=== PATIENT | female | born 2005 | race Asian ===

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

== ENCOUNTER 2025-06-01 15:11 | Outpatient (AMB) | payer BC, SELFPAY ==
--- NOTE | 2025-06-01 15:12 | A.OFFVIS_ITS ---
Intake Visit Reasons: F/u Allergies No Known Allergies Allergy (Verified 06/01/25 15:16) Medication List - Last Reconciled 06/01/25 by Neida Chacon CNP vgkesqrxmt-gyfacxzhquyzg-nfiq 50-325-40 mg 1 tab PO DAILY PRN 30 days escitalopram oxalate 10 mg PO DAILY fremanezumab-vfrm (Ajovy) mg subcut ondansetron mg PO HPI Comments Details: 19-year-old woman with anxiety, depression, poor sleep hygiene, insomnia and migraine. 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 Migraines were much better with Ajovy. She had two doses of medication. Migraines were down to once a month from 3x/week. Butalbital as needed helped. Mood was up and down. She had some trouble falling asleep. [facility] Medical History (Updated 06/01/25 @ 15:15 by Neida Chacon CNP) Insomnia Depression Migraine without aura Physical Exam Const Other: General Appearance:? normal, in no acute distress. Skin:? no rashes, no significant birthmarks. Heart:? S1, S2 normal, no murmurs. Lungs:? clear anteriorly and posteriorly. Extremities:? no edema. Psych:? alert, oriented, cognitive function intact, cooperative with exam. Neuro Other: Mental Status:?Normal attention, orientation, memory and affect.? Cranial Nerves:?Pupils are equal, round and reactive to light. External occular muscles are intact. Visual espinoza are full. Face is symmetrical. Facial sensations are normal. Tongue is midline. Palate elevates symmetrically. Shoulder shrugging is normal. Hearing to bedside conversation is normal. Sensory Exam:?....? Coordination:?No ataxia,?no titubation.? Gait Exam: Within normal limits. Extrapyramidal System:?No tremor, rigidity with normal facial expressions.? Pronator Drift:?Not present.? Involuntary Movements:?No tremors seen.? Speech:?Normal.? Assessment & Plan Assessment & Plan (1) Migraine without aura: Code(s): G43.009 - Migraine without aura, not intractable, without status migrainosus Category: Medical Qualifiers: Status migrainosus presence: without status migrainosus Intractability: not intractable Qualified Code(s): G43.009 - Migraine without aura, not intractable, without status migrainosus Plan: Continue Ajovy auto-injector 225mg/1.5mL 1.5mL subcutaneous monthly. Continue ognunuzddf-HGRP-aeup 50-325-40mg 1 tablet as needed for headaches #10 for 30 days. Continue ondansetron 4mg 1 tablet as needed for nausea. She stopped taking nortriptyline after starting Ajovy, and medication was stopped. (2) Depression with anxiety: Code(s): F41.8 - Other specified anxiety disorders Category: Medical Plan: Continue escitalopram 10mg 1 tablet daily. (3) Insomnia: Code(s): G47.00 - Insomnia, unspecified Category: Medical Qualifiers: Insomnia type: unspecified Qualified Code(s): G47.00 - Insomnia, unspecified Plan Meds tried: amitriptyline, propranolol, nortriptyline, sumatriptan, rizatriptan Medications: Changed From escitalopram oxalate 10 mg PO DAILY To escitalopram oxalate 10 mg PO DAILY 90 tabs 1RF 90 days From fremanezumab-vfrm (Ajovy) subcut To fremanezumab-vfrm (Ajovy) 225 mg (1.5 mL) subcut QMONTH 1.5 mL 5RF 30 days From ondansetron PO To ondansetron 4 mg PO DAILY PRN 10 tabs 5RF nausea and vomiting 30 days Refilled ooynenwcov-avjplszjhtlyi-zwvq 50-325-40 mg 1 tab PO DAILY PRN 10 tabs 3RF migraine 30 days Coding Level of Care Code Est Pt Level 4 (48271) Diagnoses Migraine without aura and without status migrainosus, not intractable G43.009 Status migrainosus presence: without status migrainosus Intractability: not intractable Depression with anxiety F41.8 Insomnia, unspecified type G47.00 Insomnia type: unspecified
--- OUTSIDE RECORDS SUMMARY | 2025-06-01 16:14 | XMS_ITS ---
Author Name [facility] Organization Unknown Encounters Encounter Type Encounter Reason Primary Diagnosis Location Date Ambulatory [facility], [facility]. ([facility]) 10/16/2024
--- OUTSIDE RECORDS SUMMARY | 2025-06-01 16:14 | XMS_ITS | Clinical Summary ---
Author Organization [facility]'s Address [address] [id number] Care Team Providers Care Director [employer] Name Role Phone Sherry Lomas MD Primary Care Provider [phone] Allergies Active Allergy Reactions Criticality Noted Date Comments Ortez Itching 07/31/2021 Itchy throat Pineapple 10/03/2022 Soy 10/03/2022 Medications norgestimate-eth inyl estradioL (Ortho Tri-Cyclen,María ssa) 0.18/0.215/0.25 mg-35 mcg (28) tablet
TAKE 1 TABLET BY MOUTH ONCE DAILY 11/15/2021 Active propranolol (Inderal) 10 mg tablet TAKE 1 TABLET BY MOUTH ONCE DAILY FOR 90 DAYS 08/07/2023 Active Active Problems Problem Noted Date Diagnosed Date Mechanical low back pain 01/02/2023 Chronic bilateral low back pain without sciatica 10/31/2022 Hip flexor tendinitis, right 10/03/2022 Social History Tobacco Use Types Packs/Day Years Used Date Smoking Tobacco: Never Assessed Comments No Sex and Gender Information Value Date Recorded Sex Assigned at Female 07/07/2022 11:34 PM EDT Legal Sex Female 11:34 PM EDT Gender Identity Not on file Sexual Orientation Not on file Last Filed Vital Signs Vital Sign Reading Time Taken Comments Blood Pressure 114/87 08/07/2021 1:37 PM EST Pulse - - Temperature - - Respiratory Rate - - Oxygen Saturation - - Inhaled Oxygen Concentration - - Weight 43.5 kg (96 lb) 11/27/2023 3:45 PM EST Height 152.4 cm (5') 11/27/2023 3:45 PM EST Body Mass Index 18.75 11/27/2023 3:45 PM EST Plan of Treatment Not on file [place] MEDICAID OF [facility] Care Teams Director [employer] Relationship Specialty Start Date End Date Sherry Lomas MD [address] [place] [address] PCP - General 07/07/22
--- OUTSIDE RECORDS SUMMARY | 2025-06-01 16:14 | XMS_ITS | Clinical Summary ---
Author Organization [place] [address] [facility] Building Address [address] [place] [phone] Phone Care Team Providers Care Export Specialist Name Role Phone Meghan Alejandro MD Primary Care Provider [phone] Allergies Active Allergy Reactions Criticality Noted Date Comments Ortez Itching 07/31/2021 Itchy throat Other 11/28/2019 Seasonal Allergies Soy 11/14/2020 Other Reaction(s): OTHER Throat tingling and nausea Medications amitriptyline (ELAVIL) 10 mg tablet TAKE 1 TABLET BY MOUTH AT BEDTIME 2 Active SUMAtriptan (IMITREX) 50 mg tablet 2 Active albuterol HFA (ProAir HFA) 90 mcg/actuation inhaler INHALE 2 PUFFS BY MOUTH EVERY 4 HOURS NEEDED FOR COUGH OR WHEEZING 1 Active EPINEPHrine (EpiPen 2-Niall) 0.3 mg/0.3 mL injection Inject 1 Device as directed as needed (anaphylaxis) . Use as directed 1 Active azelastine (OPTIVAR) 0.05 % ophthalmic solution Place 1 Drop into both eyes 2 times daily. 9 Active triamcinolone (NASACORT) 55 mcg nasal inhaler 1 [place] by Nasal route daily. 9 Active cetirizine (ZyrTEC) 10 mg tablet Take 1 Tab by mouth daily for 360 days. 9 Active dicyclomine (BENTYL) 20 mg tabletIndications: Constipation, unspecified constipation type Take 1 tablet (20 mg total) by mouth 4 (four) times a day if needed (abdominal pain or cramps). 60 tablet 5 5 01/19/20 26 Active sucralfate (CARAFATE) 1 gram tabletIndications: Abdominal cramps Take 1 tablet (1 g total) by mouth 2 (two) times a day. 60 each 11 5 01/19/20 26 Active desogestreL-ethiny l estradioL (Apri) 0.15-0.03 mg per tabletIndications: Encounter for other contraceptive management Take 1 tablet by mouth 1 (one) time each day. 84 tablet 2 5 02/04/20 26 Active Active Problems Problem Noted Date Diagnosed Date Hip flexor tendinitis 10/14/2022 Overview (11/03/2024): 10/20: Seeing harpreet, referred to PT Influenza A 08/28/2022 Panic attacks 07/04/2021 Severe episode of recurrent major depressive disorder, without psychotic features ([facility] V24, [facility] V28) 11/28/2019 Overview (11/03/2024): Last Assessment & Plan: 02/16: Seeing a therapist via zoom. She feels that this has been helpful Perennial allergic conjunctivitis of both eyes 0 05/24/2018 Chronic seasonal allergic rhinitis due to pollen 08/13/2017 Moderate persistent asthma without complication 08/13/2017 Overview (11/03/2024): Last Assessment & Plan: 02/16: Last albuterol use in November 2021. Not daily use Allergic rhinitis 02/21/2016 Body image problem 02/21/2016 Overview (11/03/2024): 08/15/15 She is concerned she is overweight. Refusing food @ home, eating less and less. Binge eats sweets Referred to N Last Assessment & Plan: 02/16: Talking with a therapist and her mother is aware of this. Migraines 02/21/2016 Overview (11/03/2024): 11/24/14 amitriptyline for migraine prophylaxis Last Assessment & Plan: 02/16: She has been on amitriptyline. She follows with Dr. Chang since migraines have been weekly Encounters Date Type Department Care Team Description 04/07/2025 1:45 PM EDT Office Visit Walk-In Clinic - [address] [place] [id number] Kody Julio, MANAGER CAREER Periorbital cellulitis of left eye (Primary Dx) from Last 3 Months Immunizations Name Administration Dates Next Due DTaP (Infanrix) 6wks to less than 7yo ,12/31/2005,05/01/2005,02/10,2004 TAkQ-QPN-YFR (Pentacel) 2mo to less than 5yo 12/31/2005,05/01/2005,02/10/2005,12/17 HPV 9-valent (Gardisil) 9yo to less than 46yo 11/24/2017,08/27/2016 HPV, Quadrivalent 10/22/2015 Hepatitis B Pediatric (Enger ix B; Recombivax HB) to less than 20 yo 05/01/2005,02/10/2005,2004 IPV Inactivated polio (Ipol) 6wks and older 10/30/2008,05/01/2005,02/10/2005,12/17 Influenza trivalent, 0.5mL, preservative free (Fluarix; FluLaval; Fluzone) ages 6mo and older (Afluria) 3 years and older 07/04/2021,09/04/2020,08/27/2016,06/18,10/02/2014,06/21/2009,08/29/2008 ,11/22/2007,10/28/2005 MMR, measles mumps and rubel la Live (Priorix; M-M-R II) 12mo and older 10/30/2008,10/28/2005 Meningococcal MCV4P 12/11/2020,08/27/2016,2015 Pneumococcal Conjugate Vacci ne, 7 Valent 12/31/2005,05/01/2005,02/10/2005,12/17 Tdap Tetanus diptheria acell ular pertussis (Boostrix; Adacel) 7yo and older 08/27/2016,10/22/2015 Varicella live (Varivax) 12m o and older 10/30/2008,10/28/2005 Surgical History Surgery Date Site/Laterality Comments OTHER SURGICAL HISTORY PROCEDURE: DENIES PREVIOUS SURGERY Medical History Medical History Date Comments Anxiety and depression 02/21/2016 DX:Anxiet y and depression; COMMENT: 05/12/14 in therapy. Body image problem 02/21/2016 DX:Body image problem; COMMENT: 08/15/15 She is concerned she is overweight. Refusing food @ home, eating less and less. Binge eats sweets Referred to [facility] H/O: pneumonia 02/21/2016 DX:H/O: pneumoni a; COMMENT: 10/16/15. LLL Migraines 02/21/2016 DX:Migraines; CO MMENT: 11/24/14 amitriptyline for migraine prophylaxis No aura OCD (obsessive compulsive disorder) 02/21/2016 DX:OCD (obsessive compulsive disorder); COMMENT: 01/22/15 School problem 02/21/2016 DX:School proble m; COMMENT: 06/18/15 Very shy in school. Does not ask for help. If she doesn't get something, she drops it and does something else. No IEP. [place]'s given. Moderate persistent asthma w ithout complication 08/13/2017 DX:Moderate persistent asthm a without complication Chronic seasonal allergic rh initis due to pollen 08/13/2017 DX:Chronic seasonal allergic rhinitis due to pollen Influenza A 08/28/2022 DX:Influenza A Family History Medical History Relation Name Comments Allergies Brother 1 Asthma Brother 1 Allergies Brother 2 Asthma Brother 2 Asthma Father Migraines Mother Allergies Sister Asthma Sister Relation Name Status Comments Brother 1 Alive Feliz Elvis WEISS B 04/24/2006 Brother 2 Alive Jl Santizo OB 12/19/2007 Father Alive Mother Alive Sister Alive Kyungsri Leal DO B 08/09/2003 Social History Tobacco Use Types Packs/Day Years Used Date Smoking Tobacco: Never Smokeless Tobacco: Never Tobacco Cessation:Counseling Given: Not Answered Alcohol Use Standard Drinks/Week Comments No 0 (1 standard drink = 0.6 oz pur e alcohol) Housing Instability Answer Date Recorde d Are you worried that in the next 2 months you may not have stable housing? Unable to respond 04/07/2025 Food Access & Nutrition Answer Date Rec orded Do you have access to a vari ety of food including fruits and vegetables? Unable to respond 04/07/2025 Health Literacy Answer Date Recorded How often do you need to hav e someone help you when you read instructions, pamphlets, or other written material from your doctor or pharmacy? Unable to respond 04/07/2025 Caregiver: How often do you need to have someone help you when you read instructions, pamphlets, or other written material from your doctor or pharmacy? Not on file 025 Financial Risk Answer Date Recorded How hard is it for you to pa y for the very basics like food, housing, medical care, and air conditioning / heating? Unable to respond 04/07/2025 Transportation Answer Date Recorded Has the lack of transportati on kept you from meetings, work, or from getting things needed for daily living? Unable to respond 04/07/2025 Has the lack of transportati on kept you from medical appointments or from getting medications? Unable to respond 04/07/2025 Social Isolation Answer Date Recorded How often do you feel lonely or isolated from those around you? Unable to respond 04/07/2025 Food Risk Answer Date Recorded Within the past 12 months we worried whether our food would run out before we got money to buy more. Unable to respond 025 Within the past 12 months th e food we bought just didn't last and we didn't have money to get more. Unable to respond 03/28 Dependent Care Answer Date Recorded Do you need help finding or paying for care for your loved ones. For example, children's literature professor or elderly care for an older adult? Unable to respond 04/07/2025 Education Answer Date Recorded Do you think completing more education or training, like finishing a GED, going to college, or learning a trade, would be helpful for you? Unable to respond 04/07/2025 Employment and Income Answer Date Recor ded During the last four weeks, have you been actively looking for work? Unable to respond 04/07/2025 Living Situation Answer Date Recorded What is your living situation? 0 04/07/2025 Comments No Sex and Gender Information Value Date Recorded Sex Assigned at Not on file Legal Sex Female 10:47 AM EST Gender Identity Not on file Sexual Orientation Not on file Obstetrics History Last Filed Vital Signs Vital Sign Reading Time Taken Comments Blood Pressure 92/56 04/07/2025 1:52 PM EDT Pulse 70 04/07/2025 1:52 PM EDT Temperature 37.1 C (98.7 F) 04/07/2025 1:52 PM EDT Respiratory Rate 16 11/04/2024 9:10 AM EST Oxygen Saturation 97% 04/07/2025 1:52 PM EDT Inhaled Oxygen Concentration - - Weight 45.4 kg (100 lb) 02/24/2025 8:06 AM EDT Height 152.4 cm (5') 01/18/2025 3:45 PM EDT Body Mass Index 19.53 01/18/2025 3:45 PM EDT Plan of Treatment Upcoming Encounters Date Type Department Care Team (Late st Contact Info) Description 06/21/2025 9:00 AM EDT Office Visit Internal Medicine - [address] [place] [phone] Tramaine Eckert, KISHA [address] [place] [phone] Health Maintenance Due Date Last Done Comments Pneumococcal Vaccine: Pediatrics (0 to 5 Years) and At-Risk Patients (6 to 49 Years) (1 of 1 - PPSV23) 2010 12/31/2005, 05/01/2005, 02/10/2005, Additional history exists Meningococcal B Vaccine (1 of 2 - Standard) 2020 COVID-19 Vaccine (3 - season) 2025 05/24/2021, 05/03/2021 Influenza Vaccine (#1) 2025 , 09/04/2020, 08/27/2016, Additional history exists Annual Well Child Visit (3-21 years old) 06/20/2025 06/20/2024, 02/06/2022, 12/11/2020, Additional history exists Gonorrhea/Chlamydia Screening 11/04/2025 11/04/2024, 06/20/2024 Social Influencers of Health Screening 04/07/2026 04/07/2025 DTaP,Tdap,and Td Vaccines (8 - Td or Tdap) 08/27/2026 08/27/2016, 10/22/2015, 10/30/2008, Additional history exists Cholesterol Screening (Lipid Panel) 06/20/2029 06/20/2024, 06/20/2024 Hepatitis B Vaccines Completed 05/01/2005, 02/10/2005, 2004 HIB Vaccines Completed 12/31/2005, 0 01/2006, 05/01/2005, Additional history exists IPV Vaccines Completed 10/30/2008, 01/2006, 05/01/2005, Additional history exists MMR Vaccines Completed 10/30/2008, 10/28/2005 Varicella Vaccines Completed 10/30/2008, 10/28/2005 HPV Vaccines Completed 11/24/2017, 07/31, 10/22/2015 Meningococcal ACWY Vaccine Completed 12/11, 08/27/2016, 10/22/2015 HIV Screening Completed 11/04/2024, 05/30, 06/20/2024 Hepatitis C Screening Completed 11/04/2024, 024 Depression Screening Completed 01/18/2025 Hepatitis A Vaccines Aged Out No long er eligible based on patient's age to complete this topic RSV Immunization Patients Under 20 months Aged Out No longer eligible based on patient's age to complete this topic Procedures Procedure Name Priority Date/Time Associated Diagnosis Comments HEPATITIS C ANTIBODY Routine 11/04/2024 10:16 AM EST Screen for STD (sexually transmitted disease) HIV 1, 2 ANTIBODY, P24 ANTIGEN WITH REFLEX TO DIFFERENTIATION Routine 11/04/2024 10:16 AM EST Screen for STD (sexually transmitted disease) CHLAMYDIA TRACHOMATIS AND NEISSERIA GONORRHOEAE PCR Routine 11/04/2024 9:42 AM EST Screen for STD (sexually transmitted disease) LIPID PANEL Routine 06/20/2024 from Last 3 Months or Most Recently Relevant to Health Maintenance Results * Hepatitis C antibody (11/04/2024 10:16 AM EST) Hepatitis C Antibody Negative Negative LAB CHEMISTRY METHOD 11/04/2024 3:53 PM EST [facility] Blood Venous blood specimen / Unknown Venipuncture / Unknown 11/04/2024 10:16 AM EST 11/04/2024 10:16 AM EST Zoe Harrison [facility] LAB BLOOD ORDERABLES Final R esult Performing Organization Address [facility]/ZIP Co de Phone Number [facility] [address] [place] [address], [place] [phone] * HIV 1,2 antibody, p24 antigen with reflex to differentiation (11/04/2024 10:16 AM EST) Pathologist [facility] HIV Combo AB/AG Negative Negative LAB CHEMISTRY METHOD 11/04/2024 3:54 PM EST [facility] Blood Venous blood specimen / Unknown Venipuncture / Unknown 11/04/2024 10:16 AM EST 11/04/2024 10:16 AM EST Narrative [facility] - 11/04/2024 3:54 PM EST This assay is a 4th generation assay allowing for earlier detection of HIV infection by detecting the presence of the HIV-1 p24 antigen as well as the traditional antibodies to HIV type 1 (including group O) and type 2. Use of a 4th generation assay is the current CDC recommendation for HIV screening. Zoe MENDOZA LAB BLOOD ORDERABLES Final R esult Performing Organization Address City/[facility]/ZIP Co de Phone Number [facility] [address] [place] [address], [place] [phone] * Chlamydia trachomatis and Neisseria gonorrhoeae molecular study (11/04/2024 9:42 AM EST) [facility] Neisseria gonorrhoeae PCR Negative Negative LAB MOLECULAR DIAGNOSTICS METHOD 11/05/2024 12:53 PM EST [facility] Chlamydia trachomatis PCR Negative Negative LAB MOLECULAR DIAGNOSTICS METHOD 11/05/2024 12:53 PM EST [facility] Swab Vaginal structure / Unknown Non-blood Collection / Unknown 11/04/2024 9:42 AM EST 11/04/2024 9:42 AM EST Zoe Harrison CNM LAB MICROBIOLOGY - GENERAL O RDERABLES Final Result [facility] [address] [place] [address], [place] [phone] * (ABNORMAL) Lipid panel (06/20/2024) LDL/HDL Ratio 3 0 - 4 Triglycerides 72 0 - 150 mg/dL Cholesterol 200 0 - 200 mg/dL HDL 71 >=40 mg/dL LDL Cholesterol 115(A) 0 - 100 mg/dL Blood Venous blood specimen / Unknown Historical Provider LAB BLOOD ORDERABLES Leonila l Result from Last 3 Months or Most Recently Relevant to Health Maintenance Insurance MEDICAID - [place] [facility] Care Teams Export Specialist Relationship Specialty Start Date End Date Meghan Alejandro MD [address] [place] [phone] PCP - General 02/26/24
== END 2025-06-01 15:26 | disposition home or self-care (01) ==
LOC: HO.HSM 15:12
PROVIDERS: PCP Student in an Organized Health Care Education/Training Program; Visit Provider Registered Nurse
DX: G43.009 Migraine without aura, not intractable, without status migrainosus (principal); F41.8 Other specified anxiety disorders; G47.00 Insomnia, unspecified
CPT/HCPCS: 99214